=== PATIENT | female | born 1985 | race Caucasian/White ===

== ENCOUNTER 2018-03-25 18:47 | Emergency (ER) | payer OTHER ==
[2018-03-25] MEDS: ACETAMINOPHEN 325 MG TAB PO (21:07)
[2018-03-25 21:49] LABS: ADD MAN DIFF? NO
[2018-03-25 21:54] LABS: WHITE BLOOD COUNT 9.1 10^3/ul (4.8-10.8)
[2018-03-25 21:54] LABS: BASOPHILS % 0.3 % (0.0-2.0); EOSINOPHILS # 0.1 10^3/ul (0.0-0.5); EOSINOPHILS % 0.5 % (0.0-7.0); HEMATOCRIT 38.5 % (37.0-47.0); HEMOGLOBIN 12.2 g/dl (12.0-16.0); LYMPHOCYTES # 2.1 10^3/ul (0.8-2.9); LYMPHOCYTES % 23.5 % (15.0-51.0); MEAN CORPUSCULAR HEMOGLOBIN 28.6 pg (29.0-33.0); MEAN CORPUSCULAR HGB CONC 31.7 g/dl (32.0-37.0); MEAN CORPUSCULAR VOLUME 90.4 fl (82.0-101.0); MEAN PLATELET VOLUME 12.4 fl (7.4-10.4); MONOCYTE # 0.7 10^3/ul (0.3-0.9); MONOCYTES % 7.1 % (0.0-11.0); NEUTROPHIL # 6.2 10^3/ul (1.6-7.5); NEUTROPHILS % 68.4 % (39.0-77.0); PLATELET COUNT 214 10^3/UL (140-415); RED BLOOD COUNT 4.26 10^6/ul (4.20-5.40); RED CELL DISTRIBUTION WIDTH 12.4 % (11.5-14.5)
[2018-03-25 21:58] LABS: ADD UMIC NO; UR ASCORBIC ACID NEGATIVE (NEGATIVE); UR BILIRUBIN (Dip) NEGATIVE (NEGATIVE); UR BLOOD (Dip) NEGATIVE (NEGATIVE); UR CLARITY CLEAR (CLEAR); UR COLOR YELLOW (YELLOW); UR GLUCOSE (Dip) NEGATIVE (NEGATIVE); UR KETONES (Dip) TRACE mg/dL (NEGATIVE); UR LEUKOCYTE ESTERASE (Dip) NEGATIVE Leu/ul (NEGATIVE); UR NITRITE (Dip) NEGATIVE (NEGATIVE); UR SPECIFIC GRAVITY (Dip) 1.026 (1.003-1.030); UR TOTAL PROTEIN (Dip) NEGATIVE (NEGATIVE); UR UROBILINOGEN (Dip) 2+ mg/dL (NEGATIVE)
[2018-03-25 22:13] LABS: ANION GAP 13 (8-16); BLOOD UREA NITROGEN 11 mg/dl (7-20); CALCIUM 9.2 mg/dl (8.4-10.2); CARBON DIOXIDE 25 mmol/L (21-31); CHLORIDE 105 mmol/L (97-110); CREATININE 0.58 mg/dl (0.44-1.00); GLUCOSE 92 mg/dl (70-220); POTASSIUM 3.4 mmol/L (3.5-5.1); SODIUM 140 mmol/L (135-144)
== END 2018-03-25 23:28 | disposition home or self-care (01) ==
LOC: FTE 18:47
DX: R10.30 Lower abdominal pain, unspecified (principal); R10.2 Pelvic and perineal pain
CPT/HCPCS: 36415; 76830; 76856; 80048; 81003; 81025; 84702; 85025; 99284-25

== ENCOUNTER 2018-10-23 15:50 | Outpatient (CLI) | payer OTHER ==
[2018-10-23 17:06] LABS: ADD UMIC YES; UR ASCORBIC ACID NEGATIVE (NEGATIVE); UR BACTERIA MODERATE /HPF (NONE SEEN); UR BILIRUBIN (Dip) NEGATIVE (NEGATIVE); UR BLOOD (Dip) 2+ mg/dL (NEGATIVE); UR CLARITY TURBID (CLEAR); UR COLOR AMBER (YELLOW); UR GLUCOSE (Dip) 1+ mg/dL (NEGATIVE); UR KETONES (Dip) NEGATIVE (NEGATIVE); UR LEUKOCYTE ESTERASE (Dip) 3+ Leu/ul (NEGATIVE); UR NITRITE (Dip) POSITIVE (NEGATIVE); UR NONSQUAMOUS EPITHELIAL CELL 6 /HPF (NONE SEEN); UR RBC 6 /HPF (0-5); UR SPECIFIC GRAVITY (Dip) 1.006 (1.003-1.030); UR SQUAMOUS EPITHELIAL CELL FEW /HPF (FEW); UR TOTAL PROTEIN (Dip) 1+ mg/dl (NEGATIVE); UR UROBILINOGEN (Dip) NEGATIVE (NEGATIVE); UR WBC > 182 /HPF (0-5)
[2018-10-23 17:41] LABS: ADD MAN DIFF? NO
[2018-10-23 17:43] LABS: BASOPHILS % 0.2 % (0.0-2.0); EOSINOPHILS # 0.1 10^3/ul (0.0-0.5); EOSINOPHILS % 0.8 % (0.0-7.0); HEMATOCRIT 29.7 % (37.0-47.0); HEMOGLOBIN 9.9 g/dl (12.0-16.0); LYMPHOCYTES # 1.2 10^3/ul (0.8-2.9); LYMPHOCYTES % 20.5 % (15.0-51.0); MEAN CORPUSCULAR HEMOGLOBIN 29.1 pg (29.0-33.0); MEAN CORPUSCULAR HGB CONC 33.3 g/dl (32.0-37.0); MEAN CORPUSCULAR VOLUME 87.4 fl (82.0-101.0); MEAN PLATELET VOLUME 11.1 fl (7.4-10.4); MONOCYTE # 0.7 10^3/ul (0.3-0.9); MONOCYTES % 12.4 % (0.0-11.0); NEUTROPHIL # 3.9 10^3/ul (1.6-7.5); NEUTROPHILS % 65.8 % (39.0-77.0); PLATELET COUNT 198 10^3/UL (140-415); RED CELL DISTRIBUTION WIDTH 12.7 % (11.5-14.5)
== END 2018-10-23 18:45 | disposition home or self-care (01) ==
LOC: OBT 15:50 → L-D 15:51 → OBT 18:45
DX: O23.43 Unspecified infection of urinary tract in pregnancy, third trimester (principal); O41.03X0 Oligohydramnios, third trimester, not applicable or unspecified; Z3A.33 33 weeks gestation of pregnancy
CPT/HCPCS: 76817; 76818; 81001; 85025; 87086

== ENCOUNTER 2018-11-21 21:49 | Inpatient (IN) | payer OTHER ==
[2018-11-21 22:56] LABS: ADD UMIC NO; UR ASCORBIC ACID NEGATIVE (NEGATIVE); UR BILIRUBIN (Dip) NEGATIVE (NEGATIVE); UR BLOOD (Dip) NEGATIVE (NEGATIVE); UR CLARITY CLEAR (CLEAR); UR COLOR YELLOW (YELLOW); UR GLUCOSE (Dip) NEGATIVE (NEGATIVE); UR KETONES (Dip) TRACE mg/dL (NEGATIVE); UR LEUKOCYTE ESTERASE (Dip) NEGATIVE Leu/ul (NEGATIVE); UR NITRITE (Dip) NEGATIVE (NEGATIVE); UR SPECIFIC GRAVITY (Dip) 1.009 (1.003-1.030); UR TOTAL PROTEIN (Dip) NEGATIVE (NEGATIVE); UR UROBILINOGEN (Dip) 1+ mg/dL (NEGATIVE)
[2018-11-21 22:57] LABS: ADD MAN DIFF? NO
[2018-11-21 22:59] LABS: WHITE BLOOD COUNT 7.3 10^3/ul (4.8-10.8)
[2018-11-21 22:59] LABS: BASOPHILS % 0.3 % (0.0-2.0); EOSINOPHILS % 0.5 % (0.0-7.0); HEMATOCRIT 29.8 % (37.0-47.0); HEMOGLOBIN 9.9 g/dl (12.0-16.0); LYMPHOCYTES # 1.4 10^3/ul (0.8-2.9); LYMPHOCYTES % 19.6 % (15.0-51.0); MEAN CORPUSCULAR HEMOGLOBIN 28.8 pg (29.0-33.0); MEAN CORPUSCULAR HGB CONC 33.2 g/dl (32.0-37.0); MEAN CORPUSCULAR VOLUME 86.6 fl (82.0-101.0); MEAN PLATELET VOLUME 11.4 fl (7.4-10.4); MONOCYTE # 0.6 10^3/ul (0.3-0.9); MONOCYTES % 7.7 % (0.0-11.0); NEUTROPHIL # 5.2 10^3/ul (1.6-7.5); NEUTROPHILS % 71.4 % (39.0-77.0); PLATELET COUNT 171 10^3/UL (140-415); RED BLOOD COUNT 3.44 10^6/ul (4.20-5.40); RED CELL DISTRIBUTION WIDTH 13.2 % (11.5-14.5)
[2018-11-21 23:16] LABS: ALANINE AMINOTRANSFERASE 12 IU/L (13-69); ALBUMIN 3.5 g/dl (3.3-4.9); ALBUMIN/GLOBULIN RATIO 1.06; ALKALINE PHOSPHATASE 146 IU/L (42-121); ANION GAP 9 (5-13); ASPARTATE AMINO TRANSFERASE 19 IU/L (15-46); BILIRUBIN,INDIRECT 0.4 mg/dl (0-1.1); BILIRUBIN,TOTAL 0.4 mg/dl (0.2-1.3); BLOOD UREA NITROGEN 5 mg/dl (7-20); CALCIUM 8.5 mg/dl (8.4-10.2); CARBON DIOXIDE 21 mmol/L (21-31); CHLORIDE 108 mmol/L (97-110); CREATININE 0.32 mg/dl (0.44-1.00); Estimated GFR > 60 mL/min (>60); GLUCOSE 103 mg/dl (70-220); POTASSIUM 3.6 mmol/L (3.5-5.1); SODIUM 138 mmol/L (135-144); TOTAL PROTEIN 6.8 g/dl (6.1-8.1)
[2018-11-21] MEDS: ACETAMINOPHEN 325 MG TAB PO (23:37)
[2018-11-21] MEDS: DEXTROSE 5%-LR 1,000 ML IV (23:37)
[2018-11-22] MEDS ORDERED: ACETAMINOPHEN 325 MG TAB PO (00:30)
[2018-11-22] MEDS ORDERED: AL HYDROX/MG HYDROX/SIMETH 30 ML CUP PO (00:30)
[2018-11-22] MEDS ORDERED: ONDANSETRON 4 MG INJ IV (00:30)
[2018-11-22] MEDS: DEXTROSE 5%-LR 1,000 ML IV ×3 (06:55→17:51)
[2018-11-22] MEDS: PRENATAL VITAMIN PO (09:55)
[2018-11-22] MEDS: FERROUS SULFATE (EC) 325 MG TAB PO (09:55)
[2018-11-22] MEDS: NITROFURANTOIN (SR) 100 MG CAP PO (09:55)
[2018-11-22] MEDS: ACETAMINOPHEN 325 MG TAB PO ×2 (11:06→19:11)
[2018-11-23] MEDS: PRENATAL VITAMIN PO (08:20)
[2018-11-23] MEDS: NITROFURANTOIN (SR) 100 MG CAP PO (08:20)
[2018-11-23] MEDS: FERROUS SULFATE (EC) 325 MG TAB PO (08:20)
[2018-11-24 06:51] LABS: ADD MAN DIFF? NO
[2018-11-24 06:55] LABS: BASOPHILS % 0.5 % (0.0-2.0); EOSINOPHILS # 0.1 10^3/ul (0.0-0.5); EOSINOPHILS % 1.4 % (0.0-7.0); HEMATOCRIT 30.1 % (37.0-47.0); LYMPHOCYTES # 1.6 10^3/ul (0.8-2.9); LYMPHOCYTES % 21.4 % (15.0-51.0); MEAN CORPUSCULAR HEMOGLOBIN 29.2 pg (29.0-33.0); MEAN CORPUSCULAR HGB CONC 33.2 g/dl (32.0-37.0); MEAN PLATELET VOLUME 11.8 fl (7.4-10.4); MONOCYTE # 0.6 10^3/ul (0.3-0.9); MONOCYTES % 8.5 % (0.0-11.0); NEUTROPHIL # 4.9 10^3/ul (1.6-7.5); NEUTROPHILS % 67.5 % (39.0-77.0); PLATELET COUNT 150 10^3/UL (140-415); RED BLOOD COUNT 3.42 10^6/ul (4.20-5.40); RED CELL DISTRIBUTION WIDTH 13.4 % (11.5-14.5)
[2018-11-24 06:55] LABS: WHITE BLOOD COUNT 7.3 10^3/ul (4.8-10.8)
[2018-11-24 07:25] LABS: ANION GAP 4 (5-13); BLOOD UREA NITROGEN 5 mg/dl (7-20); CALCIUM 8.2 mg/dl (8.4-10.2); CARBON DIOXIDE 21 mmol/L (21-31); CHLORIDE 111 mmol/L (97-110); CREATININE 0.38 mg/dl (0.44-1.00); GLUCOSE 83 mg/dl (70-220); MAGNESIUM 1.9 mg/dl (1.7-2.5); POTASSIUM 3.5 mmol/L (3.5-5.1); SODIUM 136 mmol/L (135-144)
[2018-11-24] MEDS: FERROUS SULFATE (EC) 325 MG TAB PO (09:06)
[2018-11-24] MEDS: PRENATAL VITAMIN PO (09:06)
[2018-11-24] MEDS: NITROFURANTOIN (SR) 100 MG CAP PO (09:06)
[2018-11-24] MEDS: ACETAMINOPHEN 325 MG TAB PO (09:09)
[2018-11-24] MEDS: POTASSIUM CHLORIDE (SR) 20 MEQ TAB PO (12:45)
== END 2018-11-24 20:15 | disposition home or self-care (01) | DRG 833 ==
LOC: OBT 21:49 → L-D 21:50 → PP1 11-22 03:43
DX: O26.892 Other specified pregnancy related conditions, second trimester (principal); R55 Syncope and collapse; O23.42 Unspecified infection of urinary tract in pregnancy, second trimester; G43.909 Migraine, unspecified, not intractable, without status migrainosus; Z3A.27 27 weeks gestation of pregnancy
CPT/HCPCS: 76815; 76817; 76818; 80053; 80069; 81003; 83735; 85025; 86850; 86900; 86901; 93005; 93306

== ENCOUNTER 2018-12-05 07:02 | Inpatient (IN) | payer OTHER ==
[2018-12-05] MEDS ORDERED: METHYLERGONOVINE 0.2 MG INJ IM ×2 (08:00→10:30)
[2018-12-05] MEDS ORDERED: CARBOPROST 250 MCG INJ IM ×2 (08:00→10:30)
[2018-12-05] MEDS ORDERED: BUTORPHANOL 2 MG INJ IV (08:00)
[2018-12-05] MEDS ORDERED: OXYTOCIN 30 UNITS/LR 500 ML IV ×2 (08:00→10:30)
[2018-12-05] MEDS ORDERED: MISOPROSTOL 200 MCG TAB PR ×2 (08:00→10:30)
[2018-12-05] MEDS ORDERED: LIDOCAINE 1% (MPF) 30 ML INJ INJ (08:00)
[2018-12-05] MEDS: LACTATED RINGER'S 1,000 ML IV (08:03)
[2018-12-05 08:21] LABS: ADD MAN DIFF? NO
[2018-12-05 08:25] LABS: WHITE BLOOD COUNT 6.6 10^3/ul (4.8-10.8)
[2018-12-05 08:25] LABS: BASOPHILS % 0.5 % (0.0-2.0); EOSINOPHILS % 0.5 % (0.0-7.0); HEMOGLOBIN 10.7 g/dl (12.0-16.0); LYMPHOCYTES # 1.3 10^3/ul (0.8-2.9); LYMPHOCYTES % 20.3 % (15.0-51.0); MEAN CORPUSCULAR HEMOGLOBIN 28.8 pg (29.0-33.0); MEAN CORPUSCULAR HGB CONC 33.4 g/dl (32.0-37.0); MEAN PLATELET VOLUME 11.7 fl (7.4-10.4); MONOCYTE # 0.6 10^3/ul (0.3-0.9); MONOCYTES % 8.5 % (0.0-11.0); NEUTROPHIL # 4.6 10^3/ul (1.6-7.5); NEUTROPHILS % 69.7 % (39.0-77.0); PLATELET COUNT 168 10^3/UL (140-415); RED BLOOD COUNT 3.72 10^6/ul (4.20-5.40); RED CELL DISTRIBUTION WIDTH 13.2 % (11.5-14.5)
[2018-12-05 08:42] LABS: INR 0.93; PROTIME 12.6 Sec (11.9-14.9)
[2018-12-05 08:43] LABS: PARTIAL THROMBOPLASTIN TIME 32.4 Sec (23.0-35.0)
[2018-12-05] MEDS: AMPICILLIN 2 GM/NS (PMX) 100 ML IV (08:50)
[2018-12-05] MEDS: BUTORPHANOL 2 MG INJ IV (09:01)
[2018-12-05] MEDS: OXYTOCIN 30 UNITS/LR 500 ML IV ×3 (09:48→12:43)
[2018-12-05] MEDS ORDERED: LACTATED RINGER'S 1,000 ML IV* (10:02)
[2018-12-05] MEDS ORDERED: DIBUCAINE 1% 30 GM OINT TOP ×2 (10:30→12:30)
[2018-12-05] MEDS ORDERED: WITCH HAZEL/GLYCERIN PAD PR (10:30)
[2018-12-05] MEDS ORDERED: ONDANSETRON 4 MG INJ IV (10:30)
[2018-12-05] MEDS ORDERED: LANOLIN HPA 1 PKT TOP (10:30)
[2018-12-05] MEDS ORDERED: BENZOCAINE 20% 56 ML SPRAY TOP (10:30)
[2018-12-05] MEDS ORDERED: MAGNESIUM HYDROXIDE 30ML CUP PO (10:30)
[2018-12-05] MEDS ORDERED: SENNA/DOCUSATE NA (8.6MG/50MG) TAB PO (10:30)
[2018-12-05] MEDS ORDERED: ACETAMINOPHEN 325 MG TAB PO ×2 (10:30)
[2018-12-05] MEDS ORDERED: IBUPROFEN 600 MG TAB PO (10:30)
[2018-12-05] MEDS: ACETAMINOPHEN 500 MG TAB PO (11:30)
[2018-12-05] MEDS: KETOROLAC 30 MG INJ IV (11:30)
[2018-12-05] MEDS ORDERED: AMPICILLIN 1 GM/NS (PMX) 50 ML IV (12:00)
[2018-12-05] MEDS: LACTATED RINGER'S 1,000 ML IV* ×2 (12:03→19:58)
[2018-12-05] MEDS ORDERED: ZOLPIDEM 5 MG TAB PO (12:30)
[2018-12-05] MEDS ORDERED: HYDROCODONE/APAP (5/325) TAB PO (12:30)
[2018-12-05] MEDS: LANOLIN HPA 1 PKT TOP (12:38)
[2018-12-05] MEDS: IBUPROFEN 600 MG TAB PO ×2 (12:39→17:39)
[2018-12-05] MEDS: BENZOCAINE 20% 56 ML SPRAY TOP (12:39)
[2018-12-05] MEDS: WITCH HAZEL/GLYCERIN PAD PR (12:39)
[2018-12-05 14:58] LABS: RAPID PLASMA REAGIN NONREACTIVE (NR)
[2018-12-05] MEDS: HYDROCODONE/APAP (5/325) TAB PO (16:40)
[2018-12-05] MEDS: MAGNESIUM HYDROXIDE 30ML CUP PO (21:30)
[2018-12-05] MEDS: SENNA/DOCUSATE NA (8.6MG/50MG) TAB PO (21:30)
[2018-12-06] MEDS: IBUPROFEN 600 MG TAB PO ×5 (00:08→23:43)
[2018-12-06] MEDS: LACTATED RINGER'S 1,000 ML IV* ×2 (04:03→12:03)
[2018-12-06 06:44] LABS: ADD MAN DIFF? NO
[2018-12-06 06:50] LABS: BASOPHILS % 0.4 % (0.0-2.0); EOSINOPHILS # 0.1 10^3/ul (0.0-0.5); EOSINOPHILS % 1.4 % (0.0-7.0); HEMATOCRIT 33.5 % (37.0-47.0); HEMOGLOBIN 10.7 g/dl (12.0-16.0); LYMPHOCYTES # 2.1 10^3/ul (0.8-2.9); LYMPHOCYTES % 29.2 % (15.0-51.0); MEAN CORPUSCULAR HEMOGLOBIN 27.9 pg (29.0-33.0); MEAN CORPUSCULAR HGB CONC 31.9 g/dl (32.0-37.0); MEAN CORPUSCULAR VOLUME 87.5 fl (82.0-101.0); MEAN PLATELET VOLUME 12.1 fl (7.4-10.4); MONOCYTE # 0.7 10^3/ul (0.3-0.9); MONOCYTES % 9.3 % (0.0-11.0); NEUTROPHIL # 4.3 10^3/ul (1.6-7.5); NEUTROPHILS % 59.2 % (39.0-77.0); PLATELET COUNT 183 10^3/UL (140-415); RED BLOOD COUNT 3.83 10^6/ul (4.20-5.40); RED CELL DISTRIBUTION WIDTH 13.8 % (11.5-14.5)
[2018-12-06 06:50] LABS: WHITE BLOOD COUNT 7.3 10^3/ul (4.8-10.8)
[2018-12-06] MEDS: SENNA/DOCUSATE NA (8.6MG/50MG) TAB PO ×2 (09:00→23:43)
[2018-12-06] MEDS: MAGNESIUM HYDROXIDE 30ML CUP PO ×2 (09:00→23:43)
[2018-12-06 09:28] LABS: HEPATITIS B SURFACE ANTIGEN NEGATIVE (NEGATIVE)
[2018-12-07] MEDS: IBUPROFEN 600 MG TAB PO ×3 (05:38→13:39)
[2018-12-07] MEDS: VARICELLA VACCINE LIVE/PF 1,350 UNIT/0.5 ML ML SC* (09:00)
[2018-12-07] MEDS: SENNA/DOCUSATE NA (8.6MG/50MG) TAB PO (09:00)
[2018-12-07] MEDS: DIPHTH/TET/ACEL PERTUSS (ADULT) 0.5 ML VIAL IM* (09:00)
[2018-12-07] MEDS: MEASLES,MUMPS,RUBELLA VACCINE INJ SC* (09:00)
[2018-12-07] MEDS: MAGNESIUM HYDROXIDE 30ML CUP PO (09:00)
== END 2018-12-07 15:07 | disposition home or self-care (01) | DRG 807 ==
LOC: OBT 07:02 → L-D 07:02 → OBT 07:40 → L-D 07:40 → PP1 11:28
PROVIDERS: Obstetrics & Gynecology
PROC: 10E0XZZ Delivery of Products of Conception, External Approach (ICD-10-PCS; principal; 2018-12-06)
DX: O99.824 Streptococcus B carrier state complicating childbirth (principal); Z37.0 Single live birth; Z3A.39 39 weeks gestation of pregnancy
CPT/HCPCS: 85025; 85610; 85730; 86592; 86850; 86900; 86901; 87340; 90716; 99464

== ENCOUNTER 2019-01-11 14:05 | Day surgery (SDC) | payer OTHER ==
[2019-01-11] MEDS: CEFAZOLIN 2 GM/50 ML (PMX) 50 ML IVPB (14:00)
[2019-01-11] MEDS: LACTATED RINGER'S 1,000 ML (ENTER RATE) IV (15:13)
[2019-01-11 15:18] LABS: WHITE BLOOD COUNT 4.6 10^3/ul (4.8-10.8)
[2019-01-11 15:18] LABS: HEMATOCRIT 36.2 % (37.0-47.0); HEMOGLOBIN 11.8 g/dl (12.0-16.0); MEAN CORPUSCULAR HEMOGLOBIN 28.4 pg (29.0-33.0); MEAN CORPUSCULAR HGB CONC 32.6 g/dl (32.0-37.0); MEAN CORPUSCULAR VOLUME 87.2 fl (82.0-101.0); PLATELET COUNT 160 10^3/UL (140-415); RED BLOOD COUNT 4.15 10^6/ul (4.20-5.40); RED CELL DISTRIBUTION WIDTH 13.1 % (11.5-14.5)
[2019-01-11 15:25] LABS: ADD MAN DIFF? YES
[2019-01-11 15:32] LABS: ANION GAP 7 (5-13); BLOOD UREA NITROGEN 10 mg/dl (7-20); CALCIUM 8.8 mg/dl (8.4-10.2); CARBON DIOXIDE 25 mmol/L (21-31); CHLORIDE 109 mmol/L (97-110); CREATININE 0.54 mg/dl (0.44-1.00); Estimated GFR > 60 mL/min (>60); GLUCOSE 78 mg/dl (70-220); POTASSIUM 3.7 mmol/L (3.5-5.1); SODIUM 141 mmol/L (135-144)
[2019-01-11 15:43] LABS: INR 1.01; PROTIME 13.4 Sec (11.9-14.9)
[2019-01-11 15:44] LABS: PARTIAL THROMBOPLASTIN TIME 29.1 Sec (23.0-35.0)
[2019-01-11] MEDS ORDERED: NEOSTIGMINE 3 MG/3 ML SYRINGE (15:52)
[2019-01-11] MEDS ORDERED: GLYCOPYRROLATE 0.4 MG INJ (15:52)
[2019-01-11] MEDS ORDERED: CEFAZOLIN 1 GM INJ (15:52)
[2019-01-11] MEDS ORDERED: ROCURONIUM 50 MG INJ (15:52)
[2019-01-11] MEDS ORDERED: PROPOFOL 20 ML (15:52)
[2019-01-11] MEDS ORDERED: ONDANSETRON 4 MG INJ (15:53)
[2019-01-11] MEDS ORDERED: MIDAZOLAM 1 MG/ML 2 ML INJ (15:53)
[2019-01-11] MEDS ORDERED: DEXAMETHASONE 4 MG/ML 5 ML INJ (15:53)
[2019-01-11] MEDS ORDERED: ROPIVACAINE 0.5 % 30 ML VIAL (15:53)
[2019-01-11] MEDS ORDERED: FENTAnyl 50 MCG/ML VIAL (15:53)
[2019-01-11] MEDS ORDERED: MEPERIDINE 25 MG INJ IV (16:00)
[2019-01-11] MEDS ORDERED: MIDAZOLAM 1 MG/ML 2 ML INJ IV (16:00)
[2019-01-11] MEDS ORDERED: ALBUTEROL 0.083% (NEB) 2.5 MG/3 ML AMP HHN (16:00)
[2019-01-11] MEDS ORDERED: LABETALOL HCL 20MG INJ IV (16:00)
[2019-01-11] MEDS ORDERED: OXYCODONE/ACETAMINOPHEN (5/325) TAB PO ×2 (16:00)
[2019-01-11] MEDS ORDERED: hydrALAzine 20 MG INJ IV (16:00)
[2019-01-11] MEDS ORDERED: HYDROmorphONE 1 MG/5 ML IV SYRINGE IV ×3 (16:00)
[2019-01-11] MEDS ORDERED: DIPHENHYDRAMINE 50 MG INJ IV (16:00)
[2019-01-11] MEDS ORDERED: IPRATROPIUM (NEB) 0.5 MG/2.5 ML AMP HHN (16:00)
[2019-01-11] MEDS ORDERED: TRIMETHOBENZAMIDE 100 MG/ML VIAL IM (16:00)
[2019-01-11] MEDS ORDERED: FENTAnyl 50 MCG/ML VIAL IV ×3 (16:00)
[2019-01-11] MEDS ORDERED: EPHEDrine 25 MG/5 ML SYG IV (16:00)
[2019-01-11] MEDS: BUPIVACAINE 0.25%/EPI (SDV) 30 ML INJ (16:54)
[2019-01-11] MEDS ORDERED: KETOROLAC 60 MG INJ IM (17:16)
[2019-01-11] MEDS: ONDANSETRON 4 MG INJ IV (17:39)
[2019-01-11] MEDS: KETOROLAC 30 MG INJ IM (17:40)
[2019-01-11] MEDS: DOXYCYCLINE 100 MG TAB PO (17:41)
[2019-01-11] MEDS: BUTORPHANOL 2 MG INJ IM (17:41)
[2019-01-11] MEDS: ACETAMINOPHEN 500 MG TAB PO (17:59)
[2019-01-11 22:11] LABS: ANISOCYTOSIS 2+ (0-0); BAND NEUTROPHILS % (M) 2 % (0-4); EOSINOPHILS % (M) 1 % (0-7); GIANT THROMBO% (M) 2 % (0-0); LYMPHOCYTES #M 1.3 10^3/ul (0.8-2.9); LYMPHOCYTES % (M) 30 % (15-51); MICROCYTOSIS 1+ (0-0); MONOCYTE #M 0.4 10^3/ul (0.3-0.9); MONOCYTES % (M) 9 % (0-11); PLATELET ESTIMATE NORMAL; POLYCHROMASIA 3+ (0-0); REACTIVE LYMPHOCYTES #M 0.1 10^3/ul (0.0-0.0); REACTIVE LYMPHOCYTES% (M) 4 % (0-0); SEG NEUT #M 2.5 10^3/ul (1.6-7.5); SEGMENTED NEUTROPHILS (M) % 54 % (39-77); SMUDGE%M 2 % (0-0)
== END 2019-01-11 18:50 | disposition home or self-care (01) ==
LOC: SDS 14:05
DX: Z30.2 Encounter for sterilization (principal)
CPT/HCPCS: 58670; 80048; 84703; 85025; 85610; 85730